=== PATIENT | male | born 1995 | race Caucasian/White ===

== ENCOUNTER 2016-09-29 01:27 | Emergency (ER) | payer MEDICAID ==
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
--- NOTE | 2016-09-29 01:49 | CPEKG ---
Heart Rate: 74 RR Interval: 811 P-R Interval: 132 QRSD Interval: 86 QT Interval: 388 QTC Interval: 431 P [place]: 37 QRS [place]: 77 T Wave [place]: 44 EKG Severity - NORMAL ECG - EKG Impression: SINUS RHYTHM Electronically Signed By: Satish Guo 29-Sep-2016 01:59:50
[2016-09-29] MEDS ORDERED: NS 1,000 ML IV ONE (02:12)
[2016-09-29 02:15] LABS: % IMMATURE GRANULYOCYTES 0.3 % (0.0-1.1); ABSOLUTE IMMATURE GRANULOCYTES 0.02 10^3/uL (0.00-0.10); ADD DIFF? NO; ADD MORPH? NO; ADD SCAN? NO; ATYPICAL LYMPHOCYTE FLAG 0 (0-99); FRAGMENT RBC FLAG 0 (0-99); HEMATOCRIT 45.1 % (40.0-51.0); HEMOGLOBIN 16.3 g/dL (13.7-17.5); LEFT SHIFT FLG 0 (0-99); LIPEMIA HEMOLYSIS FLAG 90 (0-99); MEAN CELL HEMOGLOBIN 31.1 pg (27.9-34.1); MEAN CELL HEMOGLOBIN CONCENTR. 36.1 g/dL (32.4-36.7); MEAN CELL VOLUME 86.1 fL (81.5-99.8); MEAN PLATELET VOLUME 10.4 fL (8.7-11.7); PLATELET CLUMPS FLAG 0 (0-99); PLATELET COUNT 195 10^3/uL (150-400); RED BLOOD CELL COUNT 5.24 10^6/uL (4.40-6.38); RED CELL DISTRIBUTION WIDTH 11.9 % (11.5-15.2)
[2016-09-29 02:22] LABS: ANION GAP 13 mEq/L (8-16); CALCIUM 9.4 mg/dL (8.5-10.4); CARBON DIOXIDE 25 mEq/l (22-31); CHLORIDE 104 mEq/L (97-110); CREATININE 0.9 mg/dL (0.7-1.3); ETHANOL SERUM < 10 mg/dL (0-10); GLOMERULAR FILTRATION RATE > 60; GLUCOSE 108 mg/dL (70-100); POTASSIUM 3.9 mEq/L (3.5-5.2); SALICYLATE < 1.0 mg/dL (2.0-20.0); SODIUM 142 mEq/L (134-144)
[2016-09-29 11:21] VITALS: BP 122/64; PULSE 96; RESP 18; TEMP 97.9; O2SAT 96
== END 2016-09-29 11:32 | disposition home or self-care (01) ==
LOC: EDUNIT#
DX: T43.212A Poisoning by selective serotonin and norepinephrine reuptake inhibitors, intentional self-harm, initial encounter (principal); F43.21 Adjustment disorder with depressed mood
CPT/HCPCS: 80305; G0480

== ENCOUNTER 2017-05-03 11:50 | Emergency (ER) | payer MEDICAID ==
[2017-05-03 11:59] VITALS: O2SAT 96
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
[2017-05-03] MEDS: HYDROCODONE/APAP 5/325 TAB PO ONE (12:22)
[2017-05-03] MEDS: CYCLOBENZAPRINE 10 MG TAB PO ONE (12:22)
[2017-05-03 13:49] VITALS: BP 117/76; PULSE 85; RESP 18; TEMP 98.6
== END 2017-05-03 13:46 | disposition home or self-care (01) ==
DX: S09.91XA Unspecified injury of ear, initial encounter (principal); S03.40XA Sprain of jaw, unspecified side, initial encounter; H72.2X1 Other marginal perforations of tympanic membrane, right ear; F17.200 Nicotine dependence, unspecified, uncomplicated; Y08.89XA Assault by other specified means, initial encounter; Y92.009 Unspecified place in unspecified non-institutional (private) residence as the place of occurrence of the external cause; Y99.8 Other external cause status; Y93.01 Activity, walking, marching and hiking

== ENCOUNTER 2017-09-10 07:48 | Emergency (ER) | payer MEDICAID ==
[2017-09-10 08:00] VITALS: BP 100/66; PULSE 78; RESP 16; TEMP 97.7; O2SAT 96
--- NOTE | 2017-09-10 08:06 | EDPHY ---
H & P Stated Complaint: lump on forehead for 4 days, pain in left eye. Time Seen by Provider: 09/10/17 08:05 HPI/ROS: CHIEF COMPLAINT: Painful lump over left eye HISTORY OF PRESENT ILLNESS: The patient presents to the ED with a progressively worsening painful lump over his left eye. It has been present for the past 4 days. The patient denies any history of trauma, fever, prior history of similar symptoms or history of skin infection. The patient does report his symptoms are moderate in nature. He denies additional acute complaints. REVIEW OF SYSTEMS: A comprehensive 10 point review of systems is otherwise negative aside from elements mentioned in the history of present illness. Source: Patient Exam Limitations: No limitations - Personal History Current Tetanus Diphtheria and Acellular Pertussis (TDAP): Yes - Medical/Surgical History Hx Asthma: No Hx Chronic Respiratory Disease: No Hx Diabetes: No Hx Cardiac Disease: No Hx Renal Disease: No Hx Cirrhosis: No Hx Alcoholism: No Hx HIV/AIDS: No Hx Splenectomy or Spleen Trauma: No Other PMH: scoliosis - Social History Smoking Status: Current every day smoker - Physical Exam Exam: General Appearance: Alert, no distress Head: Normocephalic, tenderness to palpation and mild soft tissue swelling noted over the left frontal scalp Eyes: Pupils equal and round no pallor or injection ENT, Mouth: Mucous membranes moist Respiratory: There are no retractions, lungs are clear to auscultation Cardiovascular: Regular rate and rhythm Gastrointestinal: Abdomen is soft and nontender, no masses, bowel sounds normal Neurological: A&O, normal motor function, normal sensory exam, normal cranial nerves Skin: Warm and dry, no rashes Musculoskeletal: Neck is supple nontender Extremities: symmetrical, full range of motion Constitutional: Initial Vital Signs Temperature (C) 36.5 C 09/10/17 07:55 Heart Rate 78 09/10/17 07:55 Respiratory Rate 16 09/10/17 07:55 Blood Pressure 100/66 09/10/17 07:55 O2 Sat (%) 96 09/10/17 07:55 O2 Delivery Mode Room Air Allergies/Adverse Reactions: No Known Allergies Allergy (Verified 05/03/17 11:56) Home Medications: Medication Instructions Recorded traZODone 09/10/17 Medical Decision Making - Diagnostics Imaging Results: Imaging Impressions Head CT 09/10/17 08:08 Impression: 1. Minimal soft tissue thickening along the left frontal scalp. No fluid collection, sinusitis, or bone lesion. 2. Normal brain. Findings discussed with Emergency Department physician, Danilo Hurd, on 09/10 at 8:[address] head without contrast: Images reviewed by myself and discussed with radiologist Dr. Pizano, negative for intracranial abnormality or bony abnormality. There is mild soft tissue swelling without evidence of obvious inflammation or fluid collection. ED Course/Re-evaluation: The patient presents to the ED for evaluation of a painful lump on his forehead. Patient is noted to have some mild soft tissue swelling without fluctuance or erythema. There was palpable tenderness noted on exam. The patient was taken for CT scan to assess for possible sinusitis with bony erosion however this was normal. The patient is otherwise well-appearing and nontoxic. His vital signs are stable. At this point time I do feel it is reasonable to have him manage his symptoms with a cold compress and ibuprofen. He should return to the ED for any increasing pain, redness, swelling or other concerns. Patient has no clinical evidence of a preseptal or septal cellulitis. Differential Diagnosis: Differential diagnosis considered includes sinusitis, cellulitis, abscess, orbital cellulitis Departure - Departure Disposition: Home, Routine, Self-Care Clinical Impression: Forehead pain Condition: Good Instructions: Musculoskeletal Pain (ED) Additional Instructions: 1. Take Ibuprofen or Motrin 600 mg by mouth three times a day. 2. Ice packs several times a day for next 2-3 days. 3. Return to the ED for increasing pain, redness, swelling or fever. 4. Please follow-up with your primary care provider as scheduled. 5. Your CT scan shows no evidence of an obvious abscess, infection or significant finding.
== END 2017-09-10 08:41 | disposition home or self-care (01) ==
DX: R51 Headache (principal); F17.200 Nicotine dependence, unspecified, uncomplicated

== ENCOUNTER 2017-12-18 04:42 | Observation (INO) | payer MEDICAID ==
[2017-12-18] MEDS ORDERED: NS 1,000 ML IV ONE ×2 (04:57→06:27)
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
[2017-12-18 05:28] LABS: PLATELET COUNT 204 10^3/uL (150-400)
[2017-12-18 05:38] LABS: INR 0.99 (0.83-1.16); PROTIME(PATIENT) 13.3 SEC (12.0-15.0)
[2017-12-18] MEDS ORDERED: ceFAZolin 2 GM/DEXTROSE 100 ML IV ONE (06:15)
[2017-12-18] MEDS ORDERED: CEFAZOLIN 1 GM/DEXTROSE/50 ML BAG IV ONE (06:17)
[2017-12-18] MEDS ORDERED: IOPAMIDOL (ISOVUE-300) 100 ML BTL ONE (06:21)
[2017-12-18] MEDS ORDERED: ONDANSETRON DISINTEGRATING 4 MG TAB PO PRN (07:37)
[2017-12-18] MEDS ORDERED: ACETAMINOPHEN 325 MG TAB PO SCH (07:45)
[2017-12-18] MEDS ORDERED: LR 1,000 ML IV SCH (08:00)
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
[2017-12-18] MEDS: IBUPROFEN 200 MG TAB PO SCH ×2 (10:04→18:15)
[2017-12-18] MEDS ORDERED: IBUPROFEN 600 MG TAB PO SCH (12:00)
[2017-12-18] MEDS ORDERED: ACETAMINOPHEN 500 MG TAB PO SCH (14:00)
[2017-12-18 16:26] VITALS: BP 117/71
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
== END 2017-12-18 18:25 | disposition home or self-care (01) ==
LOC: INTOOBSV 06:16 → F2N 09:57
PROVIDERS: ADMIT Surgery; ATTEND Surgery
PROC: 0CQ1XZZ Repair Lower Lip, External Approach (ICD-10-PCS; principal; 2017-12-18)
DX: S00.93XA Contusion of unspecified part of head, initial encounter (principal); S02.40DA Maxillary fracture, left side, initial encounter for closed fracture; S02.40CA Maxillary fracture, right side, initial encounter for closed fracture; S02.81XA Fracture of other specified skull and facial bones, right side, initial encounter for closed fracture; S02.6 Fracture of mandible; S01.512A Laceration without foreign body of oral cavity, initial encounter; S06.0X9A Concussion with loss of consciousness of unspecified duration, initial encounter; F10.129 Alcohol abuse with intoxication, unspecified; F17.200 Nicotine dependence, unspecified, uncomplicated; Y04.8XXA Assault by other bodily force, initial encounter; Y92.524 Gas station as the place of occurrence of the external cause
CPT/HCPCS: 12015; 70450; 70486; 71045; 71260; 72125; 74177; 92523; 97161; G0378; 80305; 96365; G0480; J0690; Q9967

== ENCOUNTER 2018-05-23 06:42 | Inpatient (IN) | payer MEDICAID ==
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
[2018-05-23 07:37] LABS: PLATELET COUNT 183 10^3/uL (150-400)
[2018-05-23] MEDS ORDERED: KETAMINE 500 MG/10 ML VIAL IVP ONE ×8 (08:19→09:40)
[2018-05-23] MEDS ORDERED: SUCCINYLCHOLINE CHLORIDE 200 MG/10 ML SYR IVP ONE (08:19)
[2018-05-23] MEDS ORDERED: KETAMINE 500 MG in D5W 500 ML IV SCH (08:30)
[2018-05-23] MEDS ORDERED: KETAMINE 200 MG/20 ML VIAL ONE ×3 (08:45→09:13)
--- NOTE | 2018-05-23 09:21 | CPEKG ---
Test Reason : OPEN Blood Pressure : / mmHG Vent. Rate : 068 BPM Atrial Rate : 069 BPM P-R Int : 160 ms QRS Dur : 087 ms QT Int : 401 ms P-R-T Axes : 073 078 047 degrees QTc Int : [address] elev, probable normal early repol pattern Confirmed by Sandro Bates [id number]) on 05/23/2018 9:20:43 AM Referred By: Confirmed By:Sandro Bates
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
[2018-05-23] MEDS ORDERED: ONDANSETRON DISINTEGRATING 4 MG TAB PO PRN (10:07)
[2018-05-23] MEDS ORDERED: ONDANSETRON 4 MG/2 ML VIAL IVP PRN (10:07)
[2018-05-23] MEDS ORDERED: ACETAMINOPHEN 325 MG TAB PO PRN (10:07)
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
--- NOTE | 2018-05-23 11:04 | GHP ---
DATE OF ADMISSION: 05/23/2018 CHIEF COMPLAINT: Overdose, likely intentional. HISTORY OF PRESENT ILLNESS: The patient is a 22-year-old with a history of chronic mental illness. He has had previous overdoses noted , one recreationally with tramadol and one as a suicide gesture w ith trazodone. He has never been hospitalized previously with overdoses. The patient is unable to p rovide any history and his parents are not available at this time. Apparently, he had made a suicide gesture to his mother and took clonidine, Xanax and alcohol. By the time he got to the emergency de partment, he was agitated and aggressive, requiring medications and eventual intubation. Currently, he is intubated and sedated. REVIEW OF SYSTEMS: Unobtainable. PAST MEDICAL HISTORY: Likely mental illness. I suspect he may have attention deficit hyperactivity disorder and/or depression. He has been on Wellbutrin and clonidine for sleep in the past. FAMILY HISTORY: Unobtainable. MEDICATIONS: Current medications unobtainable. He has been on Wellbutrin, propranolol, clonidine in the past. ALLERGIES: No known drug allergies. PHYSICAL EXAMINATION: VITAL SIGNS: He is currently afebrile. VITAL SIGNS: Temperature is slightly low at 35.6, heart rate is stable at 89, blood pressure currently 140/55, respirations are 16. He i s 100% on 40% FiO2. He is sedated and intubated. HEENT: Pupils are equal and reactive. He has an ET tube in place. NECK: Appears supple. HEART: Regular without murmurs. LUNGS: Clear bilaterall y without any wheeze or rhonchi. ABDOMEN: Soft. EXTREMITIES: Show no edema or clubbing. MUSCULOS KELETAL: No joint deformities or effusions. No significant atrophy. NEUROLOGIC: He is sedated. PSYCH: Unable to assess. SKIN: Intact. LABORATORY DATA: CBC is within normal limits. Chemistry also within normal limits. Urine drug scre en is positive only for benzodiazepines. Negative for salicylates and acetaminophen. Alcohol level is 84. ABG shows a pCO2 of 33, PO2 of 267. Chest x-ray shows ET tube in good position. ASSESSMENT AND PLAN: 1. Acute polysubstance overdose with clonidine, Xanax, alcohol and possible other recreational drugs . Patient currently intubated and sedated due to severe agitation on admission. We will reassess hi m in a little bit to see if he becomes more appropriate and can be extubated. 2. Hypotension, resolved, with IV fluids. 3. Suicidal gesture per report and chart review. He will be put on a hold and when he is appropriat e, will be evaluated by Mental Health. 4. History of substance abuse. /[id number]/MODL
[2018-05-23] MEDS: NS 1,000 ML IV SCH ×2 (11:38→20:44)
--- NOTE | 2018-05-23 11:51 | PDMN ---
Medical Necessity Medical necessity: Pt meets IP criteria per & MCG M-153; est los >2 mn for eval/tx of acute polysubstance overdose w/severe agitation; admit for close ICU monitoring w/intubation & sedation; per H&P & order 05/23/18
[2018-05-23] MEDS: CHLORHEXIDINE GLUCONATE 15 ML UDL PO SCH (20:40)
[2018-05-23] MEDS ORDERED: FAMOTIDINE 20 MG/NACL 50 ML IV SCH (21:00)
[2018-05-24] MEDS: NS 1,000 ML IV SCH (04:38)
[2018-05-24 04:54] LABS: PLATELET COUNT 150 10^3/uL (150-400)
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
[2018-05-24] MEDS: CHLORHEXIDINE GLUCONATE 15 ML UDL PO SCH (08:34)
[2018-05-24] MEDS ORDERED: ENOXAPARIN 40 MG/0.4 ML SYR SC SCH (09:00)
[2018-05-24] MEDS ORDERED: FAMOTIDINE 20 MG TAB PO SCH (09:00)
[2018-05-24] MEDS ORDERED: NICOTINE 21 MG/24 HR PATCH TD SCH (09:00)
[2018-05-24 11:49] VITALS: BP 133/71
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
--- NOTE | 2018-05-24 13:48 | ASMTTCLDSP ---
TLC Discharge Disposition Disposition: Answers: Discharge If Answers: Yes DISCHARGED: Patient/family given suicide hotline info & SAMHSA brochure? Disposition Notes: Notes: Pt stated commitment or ability to keep self safe, denied thoughts of self harm or harm to others. Pt expressed a desire to f/u with his [facility] counselor appointment for today at 2 pm and has an appointment today at 4 pm with his armor officer to have ankle monitor applied. Pt was given local hotline information and SAMHSA brochure After an Attempt. Discharge Concerns/Recommendations: Notes: In consultation with [facility] hospitalist, Angela Gonzalez MD, and on-call psychiatrist, Jovani Lee MD, both concurred that pt does not appear to meet 27-65 criteria requiring psychiatric hospitalization as pt does not appear to be an imminent risk of harm to self/others/gravely disabled due to a mental illness condition. Dr. Lee provided telephone order read back vacating M1 hold at 1135 hrs. Was patient given the Answers: Not applicable Inpatient Behavioral Health Prohibited Belongings List while in the ED? Psychiatrist vacating M1 Jovain Lee MD Hold: Date and time M1 hold 05/24/2018 11:35 AM vacated (time format is hh:mm): Type of Hold: Answers: M1/72-hour Hold Hold initiated by: Answers: Police Date Signed: 05/24/2018 01:47 PM Electronically Signed By:Caio Hylton
== END 2018-05-24 11:55 | disposition home or self-care (01) | DRG 812 ==
LOC: EDUNIT# → EEVIPCON 08:31 → F2N 09:12 → OBSVTOIN 10:09
PROVIDERS: ADMIT Internal Medicine; ATTEND Internal Medicine
DX: T46.5X2A Poisoning by other antihypertensive drugs, intentional self-harm, initial encounter (principal); T42.4X2A Poisoning by benzodiazepines, intentional self-harm, initial encounter; T51.0X2A Toxic effect of ethanol, intentional self-harm, initial encounter; J96.01 Acute respiratory failure with hypoxia; F32.9 Major depressive disorder, single episode, unspecified; R45.1 Restlessness and agitation; F17.210 Nicotine dependence, cigarettes, uncomplicated
CPT/HCPCS: 80305; 96374; G0480; J0330